=== PATIENT | female | born 1980 | race Two or more races ===

== ENCOUNTER 2020-05-16 07:34 | Inpatient (IN) | payer OTHER ==
[~2020-05-16] VITALS: Ht 167.6 cm; Wt 70.5 kg
[2020-05-16 07:58] VITALS: BP 115/55
[2020-05-16] MEDS ORDERED: TERBUTALINE 1 MG/ML, 1ML SQ ONE (08:00)
[2020-05-16 08:13] LABS: BASOPHILS # (AUTO) 0.04 x10^3/uL (0-0.1); BASOPHILS % (AUTO) 1 % (0-1); EOSINOPHILS # (AUTO) 0.15 x10^3/uL (0-0.4); EOSINOPHILS % (AUTO) 2 % (1-7); LYMPHOCYTES # (AUTO) 1.46 x10^3/uL (1-3.4); LYMPHOCYTES % (AUTO) 20 % (22-44); MD NO; MEAN CORPUSCULAR HEMOGLOBIN 30.2 pg (27.0-34.8); MEAN CORPUSCULAR HGB CONC 32.8 g/dL (32.4-35.8); MONOCYTES # (AUTO) 0.52 x10^3/uL (0.2-0.8); MONOCYTES % (AUTO) 7 % (2-9); NEUTROPHILS # (AUTO) 5.15 x10^3/uL (1.8-6.8); NEUTROPHILS % (AUTO) 70 % (42-75); PLATELET COUNT 224 x10^3/uL (130-400); RED BLOOD COUNT 4.04 x10^6/uL (3.82-5.3); RED CELL DISTRIBUTION WIDTH 13.7 % (9.6-15.2)
[2020-05-16] MEDS ORDERED: NEWBORN KIT ONE (08:33)
[2020-05-16] MEDS ORDERED: OXYTOCIN 30U/ 0.9% NaCL 500ML 500 ML ONE (08:33)
[2020-05-16] MEDS ORDERED: TERBUTALINE 1 MG/ML, 1ML ONE (08:33)
[2020-05-16] MEDS ORDERED: PLEASE ENTER ALLERGIES MC SCH (09:00)
[2020-05-16] MEDS ORDERED: LACTATED RINGERS 1,000 ML IV SCH ×2 (09:00→10:21)
[2020-05-16] MEDS ORDERED: SODIUM CITRATE/CITRIC ACID 30 ML UDC ONE (10:28)
[2020-05-16] MEDS ORDERED: METOCLOPRAMIDE 5 MG/ML, 2ML ONE (10:28)
[2020-05-16] MEDS ORDERED: SODIUM CITRATE/CITRIC ACID 30 ML UDC PO ONE (10:30)
[2020-05-16] MEDS ORDERED: METOCLOPRAMIDE 5 MG/ML, 2ML IV ONE (10:30)
[2020-05-16] MEDS ORDERED: LACTATED RINGERS 1,000 ML IVBOLUS ONE (10:30)
[2020-05-16] MEDS ORDERED: FENTANYL PF 100 MCG/2ML ONE (11:29)
[2020-05-16] MEDS ORDERED: CEFAZOLIN 1,000 MG ONE ×2 (11:31)
[2020-05-16] MEDS ORDERED: OXYTOCIN 10 UNITS/ML, 1ML ONE ×4 (11:31)
[2020-05-16] MEDS ORDERED: KETOROLAC 30 MG/1 ML ONE (11:32)
[2020-05-16] MEDS ORDERED: EPHEDRINE 50 MG/ML, 1ML ONE (12:17)
[2020-05-16] MEDS: OXYTOCIN 30U/ 0.9% NaCL 500ML 500 ML IV SCH ×2 (13:22→23:22)
[2020-05-16] MEDS ORDERED: LABETALOL 5MG/ML, 20ML IV PRN (13:30)
[2020-05-16] MEDS ORDERED: PROMETHAZINE 25 MG/ML, 1ML IVPush PRN (13:30)
[2020-05-16] MEDS ORDERED: CARBOPROST TROMETHAMINE 250 MCG/ML, 1ML IM PRN (13:30)
[2020-05-16] MEDS ORDERED: DIPHENHYDRAMINE 50 MG/ML, 1ML IVPush PRN (13:30)
[2020-05-16] MEDS ORDERED: EPHEDRINE 50 MG/ML, 1ML IVPush PRN (13:30)
[2020-05-16] MEDS ORDERED: METOCLOPRAMIDE 5 MG/ML, 2ML IVPush PRN (13:30)
[2020-05-16] MEDS ORDERED: ACETAMINOPHEN 325 MG TABLET PO PRN (13:30)
[2020-05-16] MEDS ORDERED: ONDANSETRON 2MG/ML, 2ML IVPush PRN (13:30)
[2020-05-16] MEDS ORDERED: METHYLERGONOVINE 0.2 MG/ML IM PRN (13:30)
[2020-05-16] MEDS ORDERED: OXYcodone 5 MG/5 ML ORAL.SOL UDC PO PRN (13:30)
[2020-05-16] MEDS ORDERED: OXYcodone/APAP 5/325MG TABLET PO PRN (13:30)
[2020-05-16] MEDS ORDERED: FENTANYL PF 100 MCG/2ML IV PRN (13:30)
[2020-05-16] MEDS ORDERED: HYDROmorphone 1 MG/ML, 1ML INJ IVPush PRN (13:30)
[2020-05-16] MEDS ORDERED: SIMETHICONE 80 MG CHEW TAB PO PRN (13:30)
[2020-05-16] MEDS ORDERED: ONDANSETRON 2MG/ML, 2ML IV PRN (13:30)
[2020-05-16] MEDS: LACTATED RINGERS 1,000 ML IV SCH ×4 (13:58→23:22)
[2020-05-16 15:00] VITALS: BP 124/79
[2020-05-16] MEDS: OXYcodone/APAP 5/325MG TABLET PO PRN (17:58)
[2020-05-16] MEDS: KETOROLAC 30 MG/1 ML IVPush SCH (19:52)
[2020-05-16] MEDS: DOCUSATE 100 MG CAPSULE PO PRN (19:52)
[2020-05-16 20:00] VITALS: BP 111/71
[2020-05-16 20:36] LABS: BASOPHILS # (AUTO) 0.02 x10^3/uL (0-0.1); BASOPHILS % (AUTO) 0 % (0-1); EOSINOPHILS # (AUTO) 0.05 x10^3/uL (0-0.4); EOSINOPHILS % (AUTO) 1 % (1-7); LYMPHOCYTES # (AUTO) 1.23 x10^3/uL (1-3.4); LYMPHOCYTES % (AUTO) 13 % (22-44); MD NO; MEAN CORPUSCULAR HGB CONC 32.9 g/dL (32.4-35.8); MEAN PLATELET VOLUME 7.9 fL (7.4-10.4); MONOCYTES # (AUTO) 0.41 x10^3/uL (0.2-0.8); MONOCYTES % (AUTO) 5 % (2-9); NEUTROPHILS # (AUTO) 7.47 x10^3/uL (1.8-6.8); NEUTROPHILS % (AUTO) 81 % (42-75); PLATELET COUNT 192 x10^3/uL (130-400); RED BLOOD COUNT 3.55 x10^6/uL (3.82-5.3); RED CELL DISTRIBUTION WIDTH 13.4 % (9.6-15.2)
[2020-05-17 00:15] VITALS: BP 100/64
[2020-05-17] MEDS: KETOROLAC 30 MG/1 ML IVPush SCH ×3 (01:37→14:04)
[2020-05-17] MEDS: OXYcodone/APAP 5/325MG TABLET PO PRN ×6 (01:40→22:59)
[2020-05-17] MEDS: LACTATED RINGERS 1,000 ML IV SCH ×5 (05:22→21:22)
[2020-05-17 05:30] VITALS: BP 102/66
[2020-05-17 07:44] VITALS: BP 103/66
[2020-05-17] MEDS: PRENATAL VIT/IRON/FA 1 EACH TABLET PO SCH (07:48)
[2020-05-17] MEDS: DOCUSATE 100 MG CAPSULE PO PRN ×2 (07:48→22:55)
[2020-05-17] MEDS: OXYTOCIN 30U/ 0.9% NaCL 500ML 500 ML IV SCH ×2 (09:22→19:22)
[2020-05-17 11:45] VITALS: BP 110/72
[2020-05-17 20:00] VITALS: BP 112/70
[2020-05-18] MEDS: IBUPROFEN 800 MG TABLET PO PRN ×2 (00:40→08:39)
[2020-05-18] MEDS: OXYcodone/APAP 5/325MG TABLET PO PRN ×2 (04:44→08:39)
[2020-05-18] MEDS: LACTATED RINGERS 1,000 ML IV SCH ×2 (05:22)
[2020-05-18] MEDS: OXYTOCIN 30U/ 0.9% NaCL 500ML 500 ML IV SCH (05:22)
[2020-05-18] MEDS: DOCUSATE 100 MG CAPSULE PO PRN (08:39)
[2020-05-18] MEDS: PRENATAL VIT/IRON/FA 1 EACH TABLET PO SCH (08:39)
[2020-05-18 09:00] VITALS: BP 102/63
[2020-05-18] MEDS ORDERED: IBUP-1223 PO (10:32)
[2020-05-18] MEDS ORDERED: OXYC-302 PO (10:33)
== END 2020-05-18 12:01 | disposition home or self-care (01) | DRG 788 ==
LOC: LDIP 07:34 → 2NW 14:30
PROVIDERS: ADMIT Obstetrics & Gynecology; ATTEND Obstetrics & Gynecology
PROC: 10D00Z1 Extraction of Products of Conception, Low, Open Approach (ICD-10-PCS; principal; 2020-05-16)
PROC: 10S0XZZ Reposition Products of Conception, External Approach (ICD-10-PCS; 2020-05-16)
DX: O32.1XX0 Maternal care for breech presentation, not applicable or unspecified (principal); Z37.0 Single live birth; Z3A.39 39 weeks gestation of pregnancy
CPT/HCPCS: 36415; 85025; 86592; 86850; 86900; 87635; G0378; J0690; J1885; J3010; J2590; J2765; J7120